=== PATIENT | male | born 2005 | race Caucasian/White ===

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

== ENCOUNTER 2024-01-13 03:11 | Emergency (ER) | payer OTHER, BC ==
[~2024-01-13] VITALS: Ht 188 cm; Wt 81.5 kg
[~2024-01-13 03:11] MED LIST: MECL-302 PO; NO HOME MEDS; ONDA8TAB13 PO
[2024-01-13 03:18] VITALS: BP 133/87; PULSE 95; RESP 16; TEMP 98.6; O2SAT 99
== END 2024-01-13 06:53 | disposition home or self-care (01) ==
LOC: ER 03:11
DX: S09.90XA Unspecified injury of head, initial encounter (principal); F12.90 Cannabis use, unspecified, uncomplicated; Z79.899 Other long term (current) drug therapy; W19.XXXA Unspecified fall, initial encounter; Y93.89 Activity, other specified; Y92.89 Other specified places as the place of occurrence of the external cause; Y99.8 Other external cause status
CPT/HCPCS: 99281